=== PATIENT | male | born 1950 | race Caucasian/White ===

== ENCOUNTER 2022-05-31 15:20 | Inpatient (IN) | payer MEDICARE, SELFPAY ==
[2022-05-31] VITALS (11 sets, daily range): BP systolic 136–187; BP diastolic 76–100; PULSE 66–87; RESP 14–21; TEMP 36.7–37.2; O2SAT 94–98; BMI 28.3
--- NOTE | 2022-05-31 15:21 | ED_ITS ---
Documented by User: Melecio Baer MD 06/12/22 08:28 HPI - Chest Pain General: Chief Complaint: Chest Pain Stated Complaint: CP Time Seen by Provider: 05/31/22 15:21 History of Present Illness: Mr. Montes is a 72-year-old gentleman with significant past medical history of MT presenting to the emergency department for chest pain. 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 He reports no history of frequent chest pain. Substernal left anterior chest radiating to both arms. Feels like a heaviness on his chest. Moderate to severe in intensity and mildly improved by nitroglycerin. No other specific changes in health, exacerbating, or alleviating factors identified. Onset (ago): minute(s) Timing of current episode: constant Prior episodes: Yes Onset: during exertion Pain location: substernal and left chest Pain radiation: right arm and left arm Severity: severe Quality: aching and heaviness Relieving factors: nothing Exacerbating factors: nothing Associated symptoms: Reports dyspnea Review of Systems General: Reports: 10 or more systems reviewed and unremarkable except in HPI and below Resp: Reports: dyspnea PFSH ED PFSH: Medical History CAD (coronary artery disease) Surgical History Hx of CABG Physical Exam Const: COMMON NORMALS: alert GENERAL APPEARANCE: cooperative and well developed HENMT: COMMON NORMALS: normocephalic and atraumatic HEAD & SCALP: normocephalic and atraumatic Eye: COMMON NORMALS: conjunctivae normal CONJUNCTIVA: Yes conjunctivae normal SCLERA: sclerae normal Neck/C-Spine: COMMON NORMALS: supple GENERAL: Yes trachea midline Resp: COMMON NORMALS: normal respiratory effort EFFORT & INSPECTION: Yes able to speak in complete sentences Cardio: COMMON NORMALS: regular rate and regular rhythm RATE: regular rate RHYTHM: regular rhythm GI: COMMON NORMALS: Soft to palpation PALPATION: Yes Soft to palpation and No Tenderness to palpation present (GI) Extremity: GENERAL: Yes normal exam except as noted and No edema Neuro: COMMON NORMALS: moves all extremities SENSORIUM/ORIENTATION: Yes alert and No Orientation impaired Psych: COMMON NORMALS: mental status grossly normal and Normal thought process present THOUGHT PROCESS: Normal thought process present Course Vital Signs: Vital signs: Vital Signs Temperature 98 F 06/02/22 03:32 Pulse Rate 77 06/02/22 11:11 Respiratory Rate 24 H 06/02/22 11:11 Blood Pressure 139/83 06/02/22 11:11 Pulse Oximetry 95 06/02/22 03:32 Oxygen Delivery Me thod 06/01/22 19:00 MDM - Chest Pain Medical Decision Making 72-year-old gentleman with cardiac history of presenting with chest pain. Exam as above. EKG notable for sinus rhythm with normal axis and intervals, no STEMI. No significant hematologic or abnormalities. Initial troponin within the normal range however symptoms have only recently started. Repeat needed. Chest x-ray with no lobar consolidation or pneumothorax. Handed off pending 2-hour troponin results. 72-year-old male checked out to me by the previous physician at shift change. He was pending a second troponin at the time. His discomfort is much improved from prior. He still having minimal discomfort. He is given Nitropaste, as well as morphine for this. His delta troponin is 180. EKG was not remarkable. Chest x-ray shows no acute findings. Spoke with the hospitalist and with cardiology. They both agree for admission. N.p.o. after midnight, and cardiac catheterization in the morning likely for this patient. Cardiology notes that if he has trouble overnight, he could go sooner. He will go to the [facility] Medical Records I reviewed the patient's medical records. Lab Data I reviewed the patient's lab results. 05/31/22 15:46 05/31/22 15:46 Radiology Impressions Chest X-Ray 05/31/22 15:43 IMPRESSION: No acute findings. Metallic sternotomy wires are present Chest CTA 05/31/22 20:50 IMPRESSION: No acute arterial findings. 1.7 cm splenic aneurysm Laboratory Results WBC 6.3 10^3/uL (4.0-10.0) 05/31/22 15:46 RBC 5.41 10^6/uL (4.1-5.3) H 05/31/22 15:46 Hgb 16.2 g/dL (11.7-16.6) 05/31/22 15:46 Hct 48.7 % (42.0-52.0) 05/31/22 15:46 MCV 90.0 fl (80-94) 05/31/22 15:46 MCH 29.9 pg (28.0-34.0) 05/31/22 15:46 MCHC 33.3 g/dL (30.0-36.0) 05/31/22 15:46 RDW 12.5 % (12.1-15.1) 05/31/22 15:46 Plt Count 265 10^3/cmm (130-400) 05/31/22 15:46 MPV 8.8 fL (7.4-10.4) 05/31/22 15:46 Neut % (Auto) 76.0 % 05/31/22 15:46 Lymph % (Auto) 15.2 % 05/31/22 15:46 [place] % (Auto) 7.3 % 05/31/22 15:46 Eos % (Auto) 0.6 % 05/31/22 15:46 Baso % (Auto) 0.6 % 05/31/22 15:46 Neut # (Auto) 4.79 10^3/uL (1.8-7.7) 05/31/22 15:46 Lymph # (Auto) 1.0 10^3/uL (0.8-4.8) 05/31/22 15:46 [place] # (Auto) 0.5 10^3/uL (0.2-0.9) 05/31/22 15:46 Eos # (Auto) 0.0 10^3/uL (0.0-0.8) 05/31/22 15:46 Baso # (Auto) 0.0 10^3/uL (0.0-0.1) 05/31/22 15:46 Nucleated RBC % (auto) 0 % 05/31/22 15:46 Nucleated RBCs # 0.0 /100WBC 05/31/22 15:46 Sodium 139 mmol/L (136-145) 05/31/22 15:46 Potassium 4.3 mmol/L (3.5-5.1) 05/31/22 15:46 Chloride 101 mmol/L (98-107) 05/31/22 15:46 Carbon Dioxide 28 mmol/L (22-29) 05/31/22 15:46 Anion Gap 14.3 (5-19) 05/31/22 15:46 BUN 11 mg/dL (8-23) 05/31/22 15:46 Creatinine 1.1 mg/dL (0.7-1.2) 05/31/22 15:46 GFR Calculation Not Reportable 05/31/22 15:46 Glucose 107 mg/dL (65-115) 05/31/22 15:46 Calculated Osmolality 288 mOsm/kg (285-295) 05/31/22 15:46 Calcium 9.6 mg/dL (8.5-10.5) 05/31/22 15:46 Total Bilirubin 0.6 mg/dL (0.15-1.2) 05/31/22 15:46 AST 21 U/L (0-40) 05/31/22 15:46 ALT 18 U/L (0-41) 05/31/22 15:46 Alkaline Phosphatase 71 U/L (40-130) 05/31/22 15:46 Troponin T Baseline 12 ng/L (0-15) 05/31/22 15:46 Troponin T 120 Minute 193.8 ng/L (0-15) H 05/31/22 19:01 Delta Troponin T 181.8 ABS# (0-10) H* 05/31/22 19:01 NT-Pro-B Natriuret Pep 103 pg/mL (0-125) 05/31/22 15:46 Total Protein 7.8 g/dL (6.6-8.7) 05/31/22 15:46 Albumin 4.8 g/dL (3.5-5.2) 05/31/22 15:46 Globulin 3.0 g/dL (1.3-4.6) 05/31/22 15:46 Lipase 34 U/L (13-60) 05/31/22 15:46 Discharge Plan Discharge Patient Disposition: Admitted As Inpatient Admit Provider: Prasanna Sorensen Clinical Impression: Chest pain, Non-STEMI (non-ST elevated myocardial infarction) Condition: Stable Discharge Diet: Cardiac Discharge Activity: Resume usual activity Coding Level of Care Code ED Certified Energy Manager for Chg Fwd Documented by User: Angus John Mendoza, 05/31/22 22:23 HPI - Chest Pain General: Chief Complaint: Chest Pain Stated Complaint: CP Time Seen by Provider: 05/31/22 15:21 PFS ED PFSH: Medical History CAD (coronary artery disease) Surgical History Hx of CABG Course Consultations: Consultation #1: [place] Consultation #2: Robert Vital Signs: Vital signs: Vital Signs Temperature 98 F 06/02/22 03:32 Pulse Rate 77 06/02/22 11:11 Respiratory Rate 24 H 06/02/22 11:11 Blood Pressure 139/83 06/02/22 11:11 Pulse Oximetry 95 06/02/22 03:32 Oxygen Delivery Me thod 06/01/22 19:00 MDM - Chest Pain Medical Decision Making 72-year-old male checked out to me by the previous physician at shift change. He was pending a second troponin at the time. His discomfort is much improved from prior. He still having minimal discomfort. He is given Nitropaste, as well as morphine for this. His delta troponin is 180. EKG was not remarkable. Chest x-ray shows no acute findings. Spoke with the hospitalist and with cardiology. They both agree for admission. N.p.o. after midnight, and cardiac catheterization in the morning likely for this patient. Cardiology notes that if he has trouble overnight, he could go sooner. He will go to the [facility] Lab Data 05/31/22 15:46 05/31/22 15:46 Radiology Impressions Chest X-Ray 05/31/22 15:43 IMPRESSION: No acute findings. Metallic sternotomy wires are present Chest CTA 05/31/22 20:50 IMPRESSION: No acute arterial findings. 1.7 cm splenic aneurysm Laboratory Results WBC 6.3 10^3/uL (4.0-10.0) 05/31/22 15:46 RBC 5.41 10^6/uL (4.1-5.3) H 05/31/22 15:46 Hgb 16.2 g/dL (11.7-16.6) 05/31/22 15:46 Hct 48.7 % (42.0-52.0) 05/31/22 15:46 MCV 90.0 fl (80-94) 05/31/22 15:46 MCH 29.9 pg (28.0-34.0) 05/31/22 15:46 MCHC 33.3 g/dL (30.0-36.0) 05/31/22 15:46 RDW 12.5 % (12.1-15.1) 05/31/22 15:46 Plt Count 265 10^3/cmm (130-400) 05/31/22 15:46 MPV 8.8 fL (7.4-10.4) 05/31/22 15:46 Neut % (Auto) 76.0 % 05/31/22 15:46 Lymph % (Auto) 15.2 % 05/31/22 15:46 [place] % (Auto) 7.3 % 05/31/22 15:46 Eos % (Auto) 0.6 % 05/31/22 15:46 Baso % (Auto) 0.6 % 05/31/22 15:46 Neut # (Auto) 4.79 10^3/uL (1.8-7.7) 05/31/22 15:46 Lymph # (Auto) 1.0 10^3/uL (0.8-4.8) 05/31/22 15:46 [place] # (Auto) 0.5 10^3/uL (0.2-0.9) 05/31/22 15:46 Eos # (Auto) 0.0 10^3/uL (0.0-0.8) 05/31/22 15:46 Baso # (Auto) 0.0 10^3/uL (0.0-0.1) 05/31/22 15:46 Nucleated RBC % (auto) 0 % 05/31/22 15:46 Nucleated RBCs # 0.0 /100WBC 05/31/22 15:46 Sodium 139 mmol/L (136-145) 05/31/22 15:46 Potassium 4.3 mmol/L (3.5-5.1) 05/31/22 15:46 Chloride 101 mmol/L (98-107) 05/31/22 15:46 Carbon Dioxide 28 mmol/L (22-29) 05/31/22 15:46 Anion Gap 14.3 (5-19) 05/31/22 15:46 BUN 11 mg/dL (8-23) 05/31/22 15:46 Creatinine 1.1 mg/dL (0.7-1.2) 05/31/22 15:46 GFR Calculation Not Reportable 05/31/22 15:46 Glucose 107 mg/dL (65-115) 05/31/22 15:46 Calculated Osmolality 288 mOsm/kg (285-295) 05/31/22 15:46 Calcium 9.6 mg/dL (8.5-10.5) 05/31/22 15:46 Total Bilirubin 0.6 mg/dL (0.15-1.2) 05/31/22 15:46 AST 21 U/L (0-40) 05/31/22 15:46 ALT 18 U/L (0-41) 05/31/22 15:46 Alkaline Phosphatase 71 U/L (40-130) 05/31/22 15:46 Troponin T Baseline 12 ng/L (0-15) 05/31/22 15:46 Troponin T 120 Minute 193.8 ng/L (0-15) H 05/31/22 19:01 Delta Troponin T 181.8 ABS# (0-10) H* 05/31/22 19:01 NT-Pro-B Natriuret Pep 103 pg/mL (0-125) 05/31/22 15:46 Total Protein 7.8 g/dL (6.6-8.7) 05/31/22 15:46 Albumin 4.8 g/dL (3.5-5.2) 05/31/22 15:46 Globulin 3.0 g/dL (1.3-4.6) 05/31/22 15:46 Lipase 34 U/L (13-60) 05/31/22 15:46 Discharge Plan Discharge Patient Disposition: Admitted As Inpatient Admit Provider: Prasanna Sorensen Clinical Impression: Chest pain, Non-STEMI (non-ST elevated myocardial infarction) Condition: Stable Discharge Diet: Cardiac Discharge Activity: Resume usual activity Coding Level of Care Code ED Certified Energy Manager for Chg Mynor
--- NOTE | 2022-05-31 15:28 | ECG_ITS ---
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
--- NOTE | 2022-05-31 15:43 | XRR_ITS ---
PROCEDURE INFORMATION: Exam: XR Chest Exam date and time: 05/31/2022 3:47 PM Age: 72 years old Clinical indication: Pain; Other: Generalized cp; Prior surgery; Surgery type: Open heart TECHNIQUE: Imaging protocol: Radiologic exam of the chest. Views: 1 view. COMPARISON: No relevant prior studies available. FINDINGS: Lungs: Unremarkable. No consolidation. Pleural spaces: Unremarkable. No pleural effusion. No pneumothorax. Heart/Mediastinum: Unremarkable. No cardiomegaly. Bones/joints: Metallic sternotomy wires are present. XR/XR chest 1V portable [id number] IMPRESSION: No acute findings. Metallic sternotomy wires are present
--- NOTE | 2022-05-31 15:48 | PC.NURSE ---
PT PLACED ON CONTINUOUS SPO2, NIBP, AND CM.
[2022-05-31] MEDS: aspirin 81 mg Chew Tablet 324 MG PO (15:49)
[2022-05-31] MEDS: morphine 4 mg/mL SDV 1 mL IVP ×2 (15:50→20:44)
[2022-05-31 15:53] LABS: Basophils % 0.6 %; Eosinophils % 0.6 %; Hematocrit 48.7 % (42.0-52.0); Hemoglobin 16.2 g/dL (11.7-16.6); Lymphocytes % 15.2 %; Mean Corpuscular HGB Conc 33.3 g/dL (30.0-36.0); Mean Corpuscular Hemoglobin 29.9 pg (28.0-34.0); Mean Platelet Volume 8.8 fL (7.4-10.4); Monocytes # 0.5 10^3/uL (0.2-0.9); Monocytes % 7.3 %; Neutrophils # 4.79 10^3/uL (1.8-7.7); Nucleated Red Blood Cells % 0 %; Platelet Count 265 10^3/cmm (130-400); Red Blood Count 5.41 10^6/uL (4.1-5.3); Red Cell Distribution Width 12.5 % (12.1-15.1); White Blood Count 6.3 10^3/uL (4.0-10.0)
[2022-05-31 16:22] LABS: Troponin(5th) Baseline 12 ng/L (0-15)
[2022-05-31 16:29] LABS: Alanine Aminotransferase 18 U/L (0-41); Albumin Level 4.8 g/dL (3.5-5.2); Alkaline Phosphatase 71 U/L (40-130); Anion Gap 14.3 (5-19); Aspartate Amino Transferase 21 U/L (0-40); Blood Urea Nitrogen 11 mg/dL (8-23); Calcium 9.6 mg/dL (8.5-10.5); Carbon Dioxide 28 mmol/L (22-29); Chloride 101 mmol/L (98-107); Glucose 107 mg/dL (65-115); Lipase 34 U/L (13-60); NT Pro B Type Natriuretic Pept 103 pg/mL (0-125); Osmolality Calculated 288 mOsm/kg (285-295); Potassium 4.3 mmol/L (3.5-5.1); Sodium 139 mmol/L (136-145); Total Bilirubin 0.6 mg/dL (0.15-1.2); Total Protein 7.8 g/dL (6.6-8.7)
[2022-05-31] MEDS: fentaNYL 50 mcg/mL INJ 2mL IVP (17:52)
[2022-05-31] MEDS: ketorolac 30 mg/mL INJ 15 MG IVP (17:53)
--- NOTE | 2022-05-31 17:57 | ECG_ITS ---
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
--- NOTE | 2022-05-31 18:56 | PC.NURSE ---
REPORT GIVEN TO HYUN SAMAYOA ASSUMED CARE.
[2022-05-31 19:43] LABS: Troponin 5 2HR 193.8 ng/L (0-15); Troponin 5 2HR Delta 181.8 ABS# (0-10)
[2022-05-31] MEDS: clopidogrel 300 mg Tablet PO (19:52)
[2022-05-31] MEDS: enoxaparin 80 mg/0.8 mL Syringe SUBCUT (19:53)
[2022-05-31] MEDS: aspirin 325 mg Tablet PO (20:08)
[2022-05-31] MEDS: nitroglycerin 1 gm/inch oint Pkt 1 INCH TOPICAL (20:46)
--- NOTE | 2022-05-31 20:50 | CTR_ITS ---
PROCEDURE INFORMATION: Exam: CTA Chest With Contrast Exam date and time: 05/31/2022 8:55 PM Age: 72 years old Clinical indication: Pain; Chest pressure; Prior surgery; Surgery date: 6+ months; Surgery type: Cabg; Additional info: Back pain. ? Dissection TECHNIQUE: Imaging protocol: Computed tomographic angiography of the chest with contrast. 3D rendering (Not supervised by radiologist): MIP and/or 3D reconstructed images were created by the technologist. Radiation optimization: All CT scans at this facility use at least one of these dose optimization techniques: automated exposure control; mA and/or kV adjustment per patient size (includes targeted exams where dose is matched to clinical indication); or iterative reconstruction. Contrast material: OMNI 350; Contrast volume: 100 ml; Contrast route: INTRAVENOUS (IV); REPORTING DATA: Count of CT and Cardiac NM exams in prior 12 months: This patient has received 0 known CTs and 0 known cardiac nuclear medicine studies in the 12 months prior to the current study. COMPARISON: CR (CHEST, ) 05/31/2022 3:47 PM RADIATION DOSE METRICS: Total DLP (mGy-cm): 769.95 FINDINGS: Pulmonary arteries: Normal. No pulmonary emboli. Aorta: No aortic aneurysm. No aortic dissection. Celiac trunk and mesenteric arteries: Splenic aneurysm measures up to 1.7 cm. Aneurysm is partially calcified. Lungs: Mild mosaic pulmonary attenuation may relate to expiratory phase imaging. Pleural spaces: No pneumothorax. No pleural effusion. Heart: Mild cardiomegaly. No pericardial effusion. Coronary calcifications are noted. Coronary arteries: Changes of coronary artery bypass are noted. Lymph nodes: No enlarged lymph nodes. Bones/joints: Sternotomy wires are in place. Soft tissues: Unremarkable. CT/CT angio chest [id number] IMPRESSION: No acute arterial findings. 1.7 cm splenic aneurysm
--- NOTE | 2022-05-31 20:54 | P.HP_ITS ---
Providers/Chief Complaint Admitting Physician: Prasanna Sorensen Primary Care Provider: Enrrique Bernardo Chief Complaint: CP History of Present Illness 72-year-old gentleman with history of CABG, started having chest pain radiating to the back and neck, quite severe, without exacerbating factors, did not respond to 1 nitroglycerin he took at home this afternoon, chest pain lasting u ntil he was in the ER, improved with treatment here. Currently feels like it might be coming back a little bit, but definitely not anything like it was before. Still having back pain. He says otherwise he has done quite well ever since his CABG. Has been quite active, walking quite a bit, has not been bothered by chest pain up until now. Review of Systems Const: Denies: fever(s), chills, body aches or malaise ENMT: Denies: throat pain, oral sores or ear or mastoid pain Card: Reports: chest pain; Denies: edema, pre-syncope or dyspnea on exertion Resp: Denies: dyspnea, productive cough, change in phlegm color or hemoptysis GI: Denies: abdominal pain, nausea, vomiting, diarrhea, constipation, hematochezia or melena : Denies: flank pain, difficulty urinating, urinary frequency or hematuria Musc: Reports: back pain; Denies: joint swelling or joint redness Skin/Breast: Denies: rash or new lesions Neuro: Denies: headache(s), numbness in extremities, weakness in extremities, dizziness, confusion or seizure-like activity Medications/Allergies Allergies Allergy/AdvReac Type Severity Reaction Status Date / Time smallpox vaccine,live Allergy ADR-Nausea Verified 05/31/22 15:49 PFSH Acute PFSH: Medical History (Updated 05/31/22 @ 20:55 by Prasanna Sorensen MD) CAD (coronary artery disease) Surgical History (Updated 05/31/22 @ 20:55 by Prasanna Sorensen MD) Hx of CABG Vitals/I&O/Wt Last Vital Signs Temp 98.1 F 05/31/22 15:20 Pulse 80 05/31/22 20:48 Resp 16 05/31/22 20:48 BP 163/92 05/31/22 20:48 Pulse Ox 98 05/31/22 20:48 O2 Del Method 05/31/22 15:20 Weight last 48 hrs Weight 82.1 kg Physical Exam Narrative: at bedside Const: COMMON NORMALS: patient oriented x3 and alert GENERAL APPEARANCE: cooperative ORIENTATION/CONSCIOUSNESS: Yes awake HENMT: COMMON NORMALS: oropharynx normal Neck/C-Spine: COMMON NORMALS: no JVD Resp: COMMON NORMALS: normal respiratory effort and clear to auscultation bilaterally AUSCULTATION: clear to auscultation bilaterally Cardio: COMMON NORMALS: no JVD, regular rhythm, S1 normal heart sound present, S2 normal heart sound present and No murmurs present (Cardio) RHYTHM: regular rhythm HEART SOUNDS: S1 normal heart sound present and S2 normal heart sound present GI: COMMON NORMALS: Normal to inspection, nondistended, normoactive bowel sounds present, Soft to palpation and non-tender PALPATION: Yes Soft to palpation Extremity: COMMON NORMALS: no joint enlargement and no pedal edema Neuro: COMMON NORMALS: patient oriented x3 and moves all extremities SENSORIUM/ORIENTATION: Yes alert Skin: COMMON NORMALS: no rashes or lesions noted GENERAL SKIN EXAM: no rashes or lesions noted Data 05/31/22 15:46 05/31/22 15:46 A&P Assessment and plan (1) Non-STEMI (non-ST elevated myocardial infarction): Troponin rise from normal up to 193.8 at 2 hours. EKG reviewed, per my interpretation no ST elevation, nonspecific T wave abnormality. Complete troponin EKG series. Continue aspirin, statin, beta-dianna. Anticoagulation. With pain radiating to the back after horseback ride additionally assess CTA to exclude large vessel dissection. Discussed risks including ALMA. Assess limited TTE, he states had a very recent TTE. Monitor on telemetry. Cardiology consultation. N.p.o. after midnight with anticipation of further assessment with coronary angiography. Chest x-ray noted with metallic sternotomy wires. NT proBNP 103. Lipase 34. Discussed with ER physician ER documentation reviewed. (2) Chest pain: Radiating to the back pain for elevation, further assessment with CTA. Plan Back pain: After horseback ride. Additionally assess spine x-rays for any compression fracture. CAD Requested home medications to be entered, please reconcile once available. Attestations Medical Necessity Statement*: Admission of over 2 midnights anticipated for assessment management of NSTEMI Diagnoses Non-STEMI (non-ST elevated myocardial infarction) I21.4 Chest pain R07.9
[2022-05-31] MEDS: iohexol 350 mg/mL 500 mL Btl (per mL) IV (20:56)
--- NOTE | 2022-05-31 21:43 | ECG_ITS ---
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1950 Requested By: Melecio Baer Order Number: [id number] Reading MD: FABIO ASCENCIO Measurements Intervals [place] Rate: 73 P: 48 VT: 184 QRS: 26 QRSD: 83 T: 25 QT: 351 QTc: 389 Interpretive Statements SINUS RHYTHM POSSIBLE RIGHT VENTRICULAR CONDUCTION DELAY [RSR (QR) IN V1/V2] NONSPECIFIC T-WAVE ABNORMALITY Compared to ECG 05/31/2022 17:57:50 No significant changes Electronically Signed On 05-31-2022 23:41:52 CDT by FABIO ASCENCIO [id number]
[2022-05-31 22:21] LABS: Troponin 5 6HR 551.1 ng/L (0-15); Troponin 5 6HR Delta 539.1 ng/L (0-12)
[2022-05-31] MEDS: pantoprazole 40 mg SDV IVP (22:54)
[2022-05-31] MEDS: metoprolol tartrate 25 mg Tablet PO (22:54)
[2022-06-01] VITALS (30 sets, daily range): BP systolic 110–133; BP diastolic 59–82; PULSE 59–89; RESP 10–29; TEMP 36.7–37.3; O2SAT 91–98
[2022-06-01 05:21] LABS: Basophils % 0.4 %; Eosinophils # 0.1 10^3/uL (0.0-0.8); Eosinophils % 0.6 %; Hematocrit 38.5 % (42.0-52.0); Hemoglobin 12.7 g/dL (11.7-16.6); Lymphocytes # 1.8 10^3/uL (0.8-4.8); Lymphocytes % 22.9 %; Mean Platelet Volume 9.3 fL (7.4-10.4); Monocytes # 0.7 10^3/uL (0.2-0.9); Monocytes % 8.7 %; Neutrophils # 5.32 10^3/uL (1.8-7.7); Nucleated Red Blood Cells % 0 %; Platelet Count 194 10^3/cmm (130-400); Red Blood Count 4.23 10^6/uL (4.1-5.3); Red Cell Distribution Width 12.6 % (12.1-15.1); White Blood Count 7.9 10^3/uL (4.0-10.0)
[2022-06-01 05:49] LABS: Alanine Aminotransferase 34 U/L (0-41); Albumin Level 3.7 g/dL (3.5-5.2); Alkaline Phosphatase 52 U/L (40-130); Aspartate Amino Transferase 228 U/L (0-40); Blood Urea Nitrogen 11 mg/dL (8-23); Calcium 8.6 mg/dL (8.5-10.5); Carbon Dioxide 28 mmol/L (22-29); Chloride 108 mmol/L (98-107); Globulin 2.4 g/dL (1.3-4.6); Glucose 108 mg/dL (65-115); Magnesium 1.7 mg/dL (1.7-2.3); Osmolality Calculated 296 mOsm/kg (285-295); Sodium 143 mmol/L (136-145); Total Bilirubin 0.5 mg/dL (0.15-1.2); Total Protein 6.1 g/dL (6.6-8.7)
--- NOTE | 2022-06-01 06:00 | USCV_ITS ---
Willie Montes Age: 72 Gender: M : 1950 Exam Date: 06/01/2022 09:18 Ordering Phys: Prasanna Sorensen MD Technologist: GRISELDA Exam Location: [facility] [place] Indication: nstemi BP: / HR: Rhythm: Sinus Technical Quality: Adequate MEASUREMENTS (Male / Female) Normal Values FINDINGS Left Ventricle Normal left ventricular size, systolic function and wall thickness, with no regional wall motion abnormalities. Left ventricular ejection fraction is estimated at 60 %. Grade II/IV diastolic dysfunction, moderately elevated filling pressures. Right Ventricle The right ventricle is normal in size and function. Right Atrium The right atrium is normal in size. Left Atrium The left atrium is normal in size. Mitral Valve Moderately thickened mitral valve. No mitral valve stenosis. Mild mitral valve regurgitation. Moderate mitral annular calcification. Aortic Valve Severe aortic valve calcification. No aortic valve stenosis. Trace aortic valve regurgitation. Tricuspid Valve Trace tricuspid valve regurgitation. Pulmonic Valve Structurally normal pulmonic valve without significant stenosis. There is no pulmonic regurgitation. Pericardium Normal pericardium without effusion. Aorta Normal ascending aorta dimension. IVC The inferior vena cava appears normal. CONCLUSIONS 1-Normal left ventricular size, systolic function and wall thickness, with no regional wall motion abnormalities. Left ventricular ejection fraction is estimated at 60 %. Grade II/IV diastolic dysfunction, moderately elevated filling pressures. 2-Severe aortic valve calcification. No aortic valve stenosis. Trace aortic valve regurgitation. 3-Moderately thickened mitral valve. No mitral valve stenosis. Mild mitral valve regurgitation. Moderate mitral annular calcification. 4-There is no pericardial effusion. 5-Right atrial pressure is around 5 mm of mercury. Saran Jones MD (Electronically Signed) Final Date: 01 June 2022 16:59 S
[2022-06-01] MEDS: clopidogrel 300 mg Tablet PO (09:30)
[2022-06-01] MEDS: aspirin 325 mg Tablet PO (09:30)
[2022-06-01] MEDS: metoprolol tartrate 25 mg Tablet PO ×2 (09:30→20:40)
[2022-06-01] MEDS: pantoprazole DR 40 mg Tablet PO (09:30)
--- NOTE | 2022-06-01 09:40 | P.CONIM_ITS ---
Providers/Reason For Consult Consulting Physician/Specialty*: ER and internal medicine Reason for Consult*: Non-ST elevation CT Attending Physician: Sonu Pryor MD Primary Care Provider: Enrrique Bernardo History of Present Illness History of Present Illness Willie Montes is a 72 year old male past medical history significant for hypertension hyperlipidemia coronary artery disease status post CABG at [facility] in 2014 with three-vessel bypass allergic to statin on Repatha presented with worsening of chest pain radiating towards back. He was ruled in for non-ST elevation CT, CTA rule out pulmonary embolism/aortic dissection. Currently he is chest pain-free and stable vital lobo. Review of Systems Const: Denies: fever(s), chills, body aches or malaise ENMT: Denies: throat pain, oral sores or ear or mastoid pain Card: Reports: chest pain; Denies: edema, pre-syncope or dyspnea on exertion Resp: Denies: dyspnea, productive cough, change in phlegm color or hemoptysis GI: Denies: abdominal pain, nausea, vomiting, diarrhea, constipation, hematochezia or melena : Denies: flank pain, difficulty urinating, urinary frequency or hematuria Musc: Reports: back pain; Denies: joint swelling or joint redness Skin/Breast: Denies: rash or new lesions Neuro: Denies: headache(s), numbness in extremities, weakness in extremities, dizziness, confusion or seizure-like activity Medications/Allergies Home Medications Medication Instructions Recorded Confirmed Last Taken Type aspirin 81 mg chewable tablet 81 mg PO DAILY 05/31/22 05/31/22 Unknown History carvedilol 3.125 mg tablet 3.125 mg PO BID 05/31/22 05/31/22 Unknown History evolocumab 140 mg/mL subcutaneous 140 mg SUBCUT DIRECTED 05/31/22 05/31/22 Unknown History pen injector (Javy Belcher) omeprazole magnesium 20 mg 20 mg PO DAILY 05/31/22 05/31/22 Unknown History tablet,delayed release (Prilosec OTC) Allergies Allergy/AdvReac Type Severity Reaction Status Date / Time smallpox vaccine,live Allergy ADR-Nausea Verified 05/31/22 15:49 Current Medications Generic Name Dose Route Start Last Admin Trade Name Freq PRN Reason Stop Dose Admin Metoprolol Tartrate 25 mg 05/31/22 21:05 05/31/22 22:54 Metoprolol Tartrate 25 Mg Tablet PO 25 mg BID@0900,2100 JOSE Administration Pantoprazole Sodium 40 mg 05/31/22 21:15 05/31/22 22:54 Pantoprazole 40 Mg Sdv IVP 40 mg Q24H JOSE Administration PFSH Acute PFSH: Medical History (Updated 06/01/22 @ 12:05 by Saran Jones MD) CAD (coronary artery disease) Surgical History (Updated 05/31/22 @ 20:55 by Prasanna Sorensen MD) Hx of CABG Vitals/I&O/Wt Last Vital Signs Temp 98.4 F 06/01/22 07:50 Pulse 77 06/01/22 07:50 Resp 18 06/01/22 07:50 BP 123/64 06/01/22 07:50 Pulse Ox 94 06/01/22 07:50 O2 Del Method 06/01/22 07:50 05/31/22 06/01/22 06/01/22 22:59 06:59 14:59 Intake Total 680 / 680 Output Total 200 / 200 Balance 480 / 480 Weight last 48 hrs Weight 186 lb 1.6 oz Weight 186 lb 3.2 oz Weight 181 lb Physical Exam Narrative: Alert awake oriented x3 No JVD cyanosis or icterus Heart regular S1-S2 Abdomen soft nontender nontender Lungs clear to auscultate 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 We will proceed with left heart cath. Patient has been explained all risk benefit and alternative for the procedure he would like to proceed with it. (2) Essential hypertension: Control will continue current regimen. (3) Hyperlipidemia associated with type 2 diabetes mellitus: Continue Repatha Coding Level of Care Code Acute Code for Chg Fwd Diagnoses Non-STEMI (non-ST elevated myocardial infarction) I21.4 Essential hypertension I10 Hyperlipidemia associated with type 2 diabetes mellitus E11.69; E78.5 Time Spent (min) 30
--- NOTE | 2022-06-01 10:59 | P.PN_ITS ---
Subjective Subjective: Patient was seen this morning at bedside, currently getting an echocardiogram, currently chest pain-free, plans on cardiac catheterization this morning Vitals/I&O/Wt Last Vital Signs Temp 98.4 F 06/01/22 07:50 Pulse 77 06/01/22 07:50 Resp 18 06/01/22 07:50 BP 123/64 06/01/22 07:50 Pulse Ox 94 06/01/22 07:50 O2 Del Method 06/01/22 07:50 05/31/22 06/01/22 06/01/22 22:59 06:59 14:59 Intake Total 680 / 680 Output Total 200 / 200 Balance 480 / 480 Weight last 48 hrs Weight 84.414 kg Weight 84.459 kg Weight 82.1 kg Physical Exam Const: COMMON NORMALS: no acute distress and patient oriented x3 Resp: COMMON NORMALS: normal respiratory effort, No retractions, No use of accessory muscles and clear to auscultation bilaterally AUSCULTATION: clear to auscultation bilaterally Cardio: COMMON NORMALS: regular rate, regular rhythm, S1 normal heart sound present and S2 normal heart sound present RATE: regular rate RHYTHM: regular rhythm HEART SOUNDS: S1 normal heart sound present and S2 normal heart sound present GI: COMMON NORMALS: Normal to inspection, nondistended, normoactive bowel sounds present and non-tender Extremity: COMMON NORMALS: no pedal edema Neuro: COMMON NORMALS: patient oriented x3 Psych: COMMON NORMALS: mental status grossly normal Data 06/01/22 04:20 06/01/22 04:20 A&P Assessment and plan (1) Non-STEMI (non-ST elevated myocardial infarction): Troponin rise from normal up to 193.8 at 2 hours. EKG reviewed, per my interpretation no ST elevation, nonspecific T wave abnormality. Complete troponin EKG series. Continue aspirin, statin, beta-dianna. Anticoagulation. With pain radiating to the back after horseback ride additionally assess CTA to exclude large vessel dissection. CTA negative for large vessel dissection Assess limited TTE, he states had a very recent TTE. Monitor on telemetry. Cardiology consultation. N.p.o., plans on coronary angiography this morning Chest x-ray noted with metallic sternotomy wires. NT proBNP 103. Lipase 34. Spoke to cardiology, on plans on angiography, spoke to at bedside (2) Chest pain: Radiating to the back pain for elevation, further assessment with CTA. Plan Back pain: After horseback ride. Additionally assess spine x-rays for any compression fracture. CAD Requested home medications to be entered, please reconcile once available. Attestations Medical Necessity Statement*: Patient requires hospitalization for NSTEMI, chest pain, Coding Level of Care Code 54955 Moderate MDM includes number and complexity of problems actively addressed during encounter, amount and/or complexity of data reviewed/ordered and described risk of complication, morbidity or mortality of management as docum ented Diagnoses Non-STEMI (non-ST elevated myocardial infarction) I21.4 Chest pain R07.9
--- NOTE | 2022-06-01 11:27 | XACV_ITS ---
Exam Room: [facility] Ht: 170 cm Wt: 84 kg BSA: 2.02 m2 Gender: Male : 1950 Any Known Allergies: Other Exam Priority: Routine Procedure(s): Procedure Description: Diagnostic procedure Procedure Description: PCI procedure Procedure Description: Venous Graft Catheterization Procedure Description: Coronary Thrombectomy Procedure Description: Miscellaneous Procedure Description: Angio-Seal Procedure Description: Coronary Angiography Robert WARD; Diagnostic Cath Status: Urgent Diagnostic Findings * #1 Left main has luminal irregularity without significant stenosis#2 LAD is occluded in the midsegment which is chronic#3 Nondominant circumflex has proximal 100% chronic total#4 RCA is a dominant vessel which is has luminal irregularities distal 30 to 40% stenosis PDA has mid 60 to 70% eccentric stenosisGraftsLIMA to LAD is patentSVG to diagonal is chronically occludedSVG to distal circumflex is a large-caliber aneurysmal diffusely diseased venous graft with proximal and distal high burden of thrombosis, it is the culprit vessel. PCI Status: Urgent PCI Indication: NSTE - ACS Interventional Findings * After engaging saphenous venous graft to circumflex run-through wire was crossed using CAT 6 penumbra catheter multiple passes of the catheter was performed from proximal to distal end of the saphenous venous graft, multiple clots were sucked out of the vessel, it restored the flow. No significant residual clot was noted. Good BERNADETTE-3 flow was confirmed and restored. Since there was no obvious lesion therefore no further ballooning or intervention was performed.. Recommendations * Continue dual antiplatelet therapy for at least 1 year for non-ST elevation MIGuideline medical therapy for acute coronary syndromeRisk factor modification. Diagnostic RX Recommendation: PCI w/o planned CABG Pressures Phase:Rest AO : 108 / 76 ( 92 ) @ 1:53:00 PM 88 / 62 ( 74 ) @ 2:30:00 PM 116 / 64 ( 86 ) @ 2:36:00 PM 110 / 54 ( 79 ) @ 2:41:00 PM Clinical Evaluation EBL: 5mL-10mL Procedural Details Procedure Consent Obtained. Admit Source: In Patient. Pre-Procedure Time Out. Identified patient by full name and date of as verbalized by the patient/guarantor. Does the consent match the physician's order: Yes. Accurate & Complete Informed Consent: Yes. Inpatient/Outpatient History & Physical on Chart: Yes. If H&P is completed, is and addenduem needed: No; If yes, is the addendum complete: N/A. Visualize and Verify Site with Patient/Guarantor: N/A. Relevant Radiology Images available: N/A. Pre-op teaching completed and patient verbalized understanding. The risks, benefits, and alternatives of sedation and/or procedure were discussed by physician. The patient agrees to continue. Procedure started. [facility] Clinical Fraility Score: 3: Managing Well. 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 Chest Pain Symptom Assessment: Typical Angina Symptoms. Correct patient, site and procedure confirmed by cath team. Current diagnosis: NSTEMI. PERRLA. 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 Lungs clear x 5 lobes. IV Site on Arrival: 20 gauge in the left anticubital. IV Fluids: 0.9% NaCl at KVO. 0 mL infused prior to director of cardiac cath lab. Pre Procedural Pulses: bilateral dorsalis pedis was 2+. Oxygen started at 2liters/min via nasal canula. right groin was prepped with chloroprep then draped in the usual sterile fashion. left groin was prepped with chloroprep then draped in the usual sterile fashion. Baseline sample Acquired. HR: 65 BPM. Physician notified. Physician arrived. Physician scrubbed in. Immediate Pre-Procedure Time Out. Correct Patient: Yes; Correct Procedure: Yes; Correct Site: Yes; Correct Patient Position: Yes; Correct Supplies: Yes; Dried Flammable Prep: Yes; Blood Products Available: N/A;. Lidocaine 1% infiltrated to the right groin. Arterial access obtained with micropuncture set. A 5 nigerien JL4 catheter in over wire. Multiple views taken of left coronary artery. Catheter removed over the standard wire. A 5 nigerien JR4 catheter in over wire. Multiple views taken of right coronary artery. SVG to Diaganol occluded. SVG's to Circumflex visualized and patent, thrombus present. AP Pads applied to patient chest. [place] to LAD visualized. Catheter out. 6 nigerien JR 4 guide catheter was inserted over the wire. Runthrough guidewire was advanced through the guide catheter to lesion in theSVG to distal circumflex. Penumbra catheter inserted into the SVG to circ. Mechanical aspiration started. Penumbra catheter removed OTW. Results checked. Results checked. [place] wire removed. Guide catheter out. A Right femoral angiogram was performed to determine safe placement of closure device. Family updated. A Angio-Seal VIP ([employer]) was successful obtaining hemostatsis at the Right Femoral artery insertion site Lot # [id number] Exp 01/13/2023. Angioseal placed without complications. No signs or symptoms of hematoma noted. Sterile dressing applied per usual sterile fashion. Post Procedure: Pulses reassessed and unchanged. PERRLA. 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 No VTE prophylaxis required. Medication's Wasted: Heparin = 1000 u. Total IV fluids: 116 mL. Medication's Wasted: Other = Cardene 24.5 mg. Post-op diagnosis: SVG to Circumflex thromotically occluded. Treated with thrombectomy. Complications: none. Estimated blood loss: 5mL-10mL. Responsiveness - Normal response to verbal stimuli; alert and oriented, PERRLA. Airway - Unaffected, no intervention required; spontaneous ventilation. Circulation: W/N/L, pulses unchanged. Nausea/Vomiting: No. Procedure completed. Patient transferred by bed to 1st floor. Vital chart was stopped. Access Site Site: Right Femoral artery Sheath Size: 6 Fr Hemostasis Method: Angio-Seal VIP ([employer] [facility]aden) Hemostasis Success: Successful Procedure Medications Start: 12:23 PM Stop: 12:23 PM Medication: Fentanyl Amount: 50 mcg Route: I.V. Start: 12:36 PM Stop: 12:36 PM Medication: Versed Amount: 1 mg Route: I.V. Start: 12:56 PM Stop: 12:56 PM Medication: Versed Amount: 1 mg Route: I.V. Start: 12:56 PM Stop: 12:56 PM Medication: Fentanyl Amount: 25 mcg Route: I.V. Start: 1:19 PM Stop: 1:19 PM Medication: Angiomax (5mg/mL) Amount: 12.6 ml Route: I.V. bolus Start: 1:19 PM Stop: 1:19 PM Medication: Angiomax (5mg/mL) Amount: 29.4 ml/hr Route: I.V. drip Start: 1:31 PM Stop: 1:31 PM Medication: Versed Amount: 1 mg Route: I.V. Start: 1:39 PM Stop: 1:39 PM Medication: Cardene Amount: 500 mcg Route: I.C. Start: 1:48 PM Stop: 1:48 PM Medication: Fentanyl Amount: 25 mcg Route: I.V. Start: 1:48 PM Stop: 1:48 PM Medication: Versed Amount: 1 mg Route: I.V. I, the attending physician, have reviewed and verified all procedure medications. Yes, all medications given per verbal order History/Risk Factors Hypertension: Yes Dyslipidemia: Yes Peripheral Arterial Disease (PAD): No Myocardial Infarction (ME): Yes Obesity: No Renal Disease: No Tobacco Use: Former Prior Interventions PCI: No CABG: Yes Valve Surgery: No Report Signatures Finalized by Saran Jones MD on 06/02/2022 12:39 AM
--- NOTE | 2022-06-01 12:06 | W.PM.OPSUD ---
Surgery/Procedure H&P Update DATE OF PROCEDURE: June 01, 2022 DATE H&P PERFORMED: 06/01/22 H&P UPDATE INFORMATION: I have examined patient prior to procedure and No changes to prior documentation PATIENT REASSESSED PRIOR TO SEDATION, WITH NO CHANGE NOTED: Yes PHYSICAL EXAM: alert, oriented x 3, clear to auscultation bilaterally and regular rate & rhythm AIRWAY EVAL/ANESTHESIA PLAN: ASA II and Risks, benefits & alternatives of sedation and/or procedure discussed ADDITIONAL INFORMATION: Mallampati 2
--- NOTE | 2022-06-01 13:10 | PC.NURSE ---
to cardiac quality assurance qa lab technician via bed at 1230
[2022-06-01] MEDS: sodium chloride 0.9% 1,000 ML 100 ML IV ×2 (14:20→23:25)
--- NOTE | 2022-06-01 14:29 | PC.NURSE ---
returned from cardiac laboratory veterinarian via bed at 1420.report received .pt is drowsy but easily awakened.sr on monitor.bp stable.sheath was dc'd in laboratory veterinarian and artery was closed with angioseal.right groin drsg is dry and intact.no hematoma noted.right leg is warm to touch and with brisk capillary refill.palpable dp pulse noted.pt and cg instructed in activity restrictions s/p femoral artery procedure...and instructed to notify staff for any bleeding,pain,cp,sob,numbness,or for any concerns at all.both verb understanding of instructions
[2022-06-01] MEDS: bivalirudin 250 MG in sodium chloride 0.9% 500 ML 295.45 MG IV (14:40)
[2022-06-01] MEDS: atorvastatin 40 mg Tablet PO (20:41)
[2022-06-01] MEDS: pantoprazole 40 mg SDV IVP (20:42)
[2022-06-02 03:29] LABS: Basophils % 0.3 %; Eosinophils % 0.1 %; Hematocrit 36.2 % (42.0-52.0); Lymphocytes # 1.6 10^3/uL (0.8-4.8); Lymphocytes % 17.5 %; Mean Corpuscular HGB Conc 33.1 g/dL (30.0-36.0); Mean Corpuscular Hemoglobin 29.5 pg (28.0-34.0); Mean Corpuscular Volume 88.9 fl (80-94); Mean Platelet Volume 9.2 fL (7.4-10.4); Monocytes # 0.9 10^3/uL (0.2-0.9); Monocytes % 9.8 %; Neutrophils # 6.38 10^3/uL (1.8-7.7); Nucleated Red Blood Cells % 0 %; Platelet Count 175 10^3/cmm (130-400); Red Blood Count 4.07 10^6/uL (4.1-5.3); Red Cell Distribution Width 12.5 % (12.1-15.1); White Blood Count 8.9 10^3/uL (4.0-10.0)
[2022-06-02 03:32] VITALS: BP 130/69; PULSE 84; RESP 19; TEMP 36.6; O2SAT 95
[2022-06-02 03:42] LABS: Alanine Aminotransferase 32 U/L (0-41); Albumin Level 3.3 g/dL (3.5-5.2); Alkaline Phosphatase 38 U/L (40-130); Anion Gap 12.7 (5-19); Aspartate Amino Transferase 174 U/L (0-40); Blood Urea Nitrogen 10 mg/dL (8-23); Calcium 7.9 mg/dL (8.5-10.5); Carbon Dioxide 23 mmol/L (22-29); Chloride 106 mmol/L (98-107); Globulin 2.6 g/dL (1.3-4.6); Glucose 92 mg/dL (65-115); Osmolality Calculated 285 mOsm/kg (285-295); Potassium 3.7 mmol/L (3.5-5.1); Sodium 138 mmol/L (136-145); Total Bilirubin 0.9 mg/dL (0.15-1.2); Total Protein 5.9 g/dL (6.6-8.7)
[2022-06-02 05:11] VITALS: PULSE 86
[2022-06-02] MEDS: metoprolol tartrate 25 mg Tablet PO (09:23)
[2022-06-02] MEDS: pantoprazole DR 40 mg Tablet PO (09:23)
[2022-06-02] MEDS: clopidogrel 75 mg Tablet PO (09:23)
[2022-06-02] MEDS: aspirin 325 mg Tablet PO (09:23)
[2022-06-02 09:41] VITALS: BP 139/83; PULSE 77; RESP 24
--- NOTE | 2022-06-02 09:42 | PM.PN ---
Subjective Subjective: Patient is doing well. Had mechanical thrombectomy of SVG to LCx yesterday Vitals/I&O/Wt Last Vital Signs Temp 98 F 06/02/22 03:32 Pulse 86 06/02/22 05:11 Resp 19 H 06/02/22 03:32 BP 130/69 06/02/22 03:32 Pulse Ox 95 06/02/22 03:32 O2 Del Method 06/01/22 19:00 06/01/22 06/02/22 06/02/22 22:59 06:59 14:59 Intake Total 740 / 1100 908.333 / 2007.333 1240 / 1240 Balance 740 / 750 908.333 / 1407.374 2161 / 1240 Weight last 48 hrs Weight 186 lb 1.6 oz Weight 186 lb 1.6 oz Weight 186 lb 3.2 oz Weight 181 lb Physical Exam Narrative: Alert awake oriented x3 No JVD cyanosis or icterus Heart regular S1-S2 Abdomen soft nontender nontender Lungs clear to auscultate 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 Continue aspirin and Plavix. Patient is stable to be discharged from cardiology follow up (2) Essential hypertension: Control will continue current regimen. (3) Hyperlipidemia associated with type 2 diabetes mellitus: Continue Repatha Attestations Medical Necessity Statement*: Care expected to cross 2 midnights. Coding Level of Care Code Acute Code for Chg Fwd Diagnoses Non-STEMI (non-ST elevated myocardial infarction) I21.4 Essential hypertension I10 Hyperlipidemia associated with type 2 diabetes mellitus E11.69; E78.5
--- NOTE | 2022-06-02 10:10 | PC.CHAP ---
Pastoral Care Encounter/Spiritual Assessment Type of Contact [] Declined nursing home manager visit [] Patient/Family/Request visit [] Outpatient visit [] Follow-up visit [] Physician referral [] Code/Alert [x] Routine visit [] Staff referral [] Actively dying [] Patient sleeping [x] Family support [] [] Out of room [] Palliative care [] [] Receiving care in room [] Pre-surgical visit [] Trauma [] Long length of stay [] ICU visit [] Other: Relational/Emotional Strength [x] Patient feels connected with others/family/visitors/staff [] Distress [] Loneliness/isolation [] Abandonment Spirituality of Patient [x] Person of Marielle [] Attends Restoration of their Marielle [x] Believes in Prayer [] Reads Bible or Quaker materials [] There are Spiritual issues to be addressed Software Verification Engineer Interventions [x] Prayer [] Active listening [] Non-anxious presence [x] Spiritual/emotional support [] Crisis/trauma care [] Spiritual counseling [] Bereavement support [] Provided bereavement packet [] Provided Bible/devotional materials [] Provided toy/stuffed animal, coloring book to patient or family member [] Provided Communion [] Anointing/[place] [] Salvation [x] Completed spiritual assessment [] Other: Impact on Illness or Injury [] Angry [] Fearful [] Anxious [] Often cries [] Exhaustion [] Unable to work [] Unable to attend muslim [] Unable to walk/stand [] Unable to read [] Unable to drive [] Unable to eat/drink [] Unable to sleep [] Unable to be with family [] Patient intubated [] Other: Summary Time spent with patient 5 min
--- NOTE | 2022-06-02 10:58 | P.DS_ITS ---
Discharge Providers Date of Admission: 05/31/22 20:57 Date of Discharge: June 02, 2022 Attending Provider at Admission: Prasanna Sorensen Attending Provider at Discharge: Sonu Pryor MD Primary Care Provider: Enrrique Bernardo Diagnoses at Discharge Discharge Diagnosis (1) Non-STEMI (non-ST elevated myocardial infarction): Status: Acute (2) Essential hypertension: Status: Acute (3) Hyperlipidemia associated with type 2 diabetes mellitus: Status: Acute Reason for Visit Reason for Visit: CP Hospital Course Hospital Course 72-year-old gentleman with history of CABG, started having chest pain radiating to the back and neck, quite severe, without exacerbating factors, did not respond to 1 nitroglycerin he took at home this afternoon, chest pain lasting until he was in the ER, improved with treatment here.? Currently feels like it might be coming back a little bit, but definitely not anything like it was before.? Still having back pain.? He says otherwise he has done quite well ever since his CABG.? Has been quite active, walking quite a bit, has not been bothered by chest pain up until now. Patient was admitted to [facility] for NSTEMI, underwent coronary angiogram #1 Left main has luminal irregularity without significant stenosis#2 LAD is occluded in the midsegment which is chronic#3 Nondominant circumflex has proximal 100% chronic total#4 RCA is a dominant vessel which is has luminal irregularities distal 30 to 40% stenosis PDA has mid 60 to 70% eccentric stenosisGraftsLIMA to LAD is patentSVG to diagonal is chronically occludedSVG to distal circumflex is a large-caliber aneurysmal diffusely diseased venous graft with proximal and distal high burden of thrombosis, it is the culprit vessel. * After engaging saphenous venous graft to circumflex run-through wire was crossed using CAT 6 penumbra catheter multiple passes of the catheter was performed from proximal to distal end of the saphenous venous graft, multiple clots were sucked out of the vessel, it restored the flow.? No significant residual clot was noted.? Good BERNADETTE-3 flow was confirmed and restored.? Since there was no obvious lesion therefore no further ballooning or intervention was performed.. -Patient was monitored for 24 hours after procedure -Managed with aspirin, Plavix, he has adverse reaction to statin, takes Repatha, beta-dianna -Overall remained chest pain-free, remain asymptomatic -Discharged on dual antiplatelet therapy, was advised to continue for at least 1 year, if he develops any bloody or black stools to go to emergency room -Please follow-up with the primary care for risk factor modification -Patient was advised if he has any recurrent chest pain to go to the emergency room -Follow-up with cardiology next week Physical Exam Const: COMMON NORMALS: no acute distress and patient oriented x3 Resp: COMMON NORMALS: normal respiratory effort, No retractions, No use of accessory muscles and clear to auscultation bilaterally AUSCULTATION: clear to auscultation bilaterally Cardio: COMMON NORMALS: regular rate, regular rhythm, S1 normal heart sound present and S2 normal heart sound present RATE: regular rate RHYTHM: regular rhythm HEART SOUNDS: S1 normal heart sound present and S2 normal heart sound present GI: COMMON NORMALS: Normal to inspection, nondistended, normoactive bowel sounds present and non-tender Extremity: COMMON NORMALS: no pedal edema Neuro: COMMON NORMALS: patient oriented x3 Psych: COMMON NORMALS: mental status grossly normal Discharge Data Studies Completed and Pending Completed Studies During Hospitalization Category Date Time Status CTA chest [CT angio chest [id number]] Stat Cat Scan 05/31/22 20:50 Completed B[employer]ACHINE request for service Routine Exams 06/01/22 11:27 Completed XR chest 1V portable [id number] Stat Exams 05/31/22 15:43 Completed CV. echo limited [id number] Routine Ultrasound 06/01/22 06:00 Completed Pending at discharge Category Date Time Status Complete Blood Count w/Auto AM LABS Lab 06/03/22 04:00 Ordered Comprehensive Metabolic Panel AM LABS Lab 06/03/22 04:00 Ordered Radiology Impressions Chest X-Ray 05/31/22 15:43 IMPRESSION: No acute findings. Metallic sternotomy wires are present Chest CTA 05/31/22 20:50 IMPRESSION: No acute arterial findings. 1.7 cm splenic aneurysm Laboratory Results WBC 8.9 10^3/uL (4.0-10.0) 06/02/22 02:57 RBC 4.07 10^6/uL (4.1-5.3) L 06/02/22 02:57 Hgb 12.0 g/dL (11.7-16.6) 06/02/22 02:57 Hct 36.2 % (42.0-52.0) L 06/02/22 02:57 MCV 88.9 fl (80-94) 06/02/22 02:57 MCH 29.5 pg (28.0-34.0) 06/02/22 02:57 MCHC 33.1 g/dL (30.0-36.0) 06/02/22 02:57 RDW 12.5 % (12.1-15.1) 06/02/22 02:57 Plt Count 175 10^3/cmm (130-400) 06/02/22 02:57 MPV 9.2 fL (7.4-10.4) 06/02/22 02:57 Neut % (Auto) 72.0 % 06/02/22 02:57 Lymph % (Auto) 17.5 % 06/02/22 02:57 [place] % (Auto) 9.8 % 06/02/22 02:57 Eos % (Auto) 0.1 % 06/02/22 02:57 Baso % (Auto) 0.3 % 06/02/22 02:57 Neut # (Auto) 6.38 10^3/uL (1.8-7.7) 06/02/22 02:57 Lymph # (Auto) 1.6 10^3/uL (0.8-4.8) 06/02/22 02:57 [place] # (Auto) 0.9 10^3/uL (0.2-0.9) 06/02/22 02:57 Eos # (Auto) 0.0 10^3/uL (0.0-0.8) 06/02/22 02:57 Baso # (Auto) 0.0 10^3/uL (0.0-0.1) 06/02/22 02:57 Nucleated RBC % (auto) 0 % 06/02/22 02:57 Nucleated RBCs # 0.0 /100WBC 06/02/22 02:57 Sodium 138 mmol/L (136-145) 06/02/22 02:57 Potassium 3.7 mmol/L (3.5-5.1) 06/02/22 02:57 Chloride 106 mmol/L (98-107) 06/02/22 02:57 Carbon Dioxide 23 mmol/L (22-29) 06/02/22 02:57 Anion Gap 12.7 (5-19) 06/02/22 02:57 BUN 10 mg/dL (8-23) 06/02/22 02:57 Creatinine 1.1 mg/dL (0.7-1.2) 06/02/22 02:57 GFR Calculation Not Reportable 06/02/22 02:57 Glucose 92 mg/dL (65-115) 06/02/22 02:57 Calculated Osmolality 285 mOsm/kg (285-295) 06/02/22 02:57 Calcium 7.9 mg/dL (8.5-10.5) L 06/02/22 02:57 Magnesium 1.7 mg/dL (1.7-2.3) 06/01/22 04:20 Total Bilirubin 0.9 mg/dL (0.15-1.2) 06/02/22 02:57 AST 174 U/L (0-40) H 06/02/22 02:57 ALT 32 U/L (0-41) 06/02/22 02:57 Alkaline Phosphatase 38 U/L (40-130) L 06/02/22 02:57 Troponin T Baseline 12 ng/L (0-15) 05/31/22 15:46 Troponin T 120 Minute 193.8 ng/L (0-15) H 05/31/22 19:01 Delta Troponin T 181.8 ABS# (0-10) H* 05/31/22 19:01 Troponin T Hi Sens 6Hr 551.1 ng/L (0-15) H 05/31/22 21:53 Troponin T Hi Sens 6Hr Delta 539.1 ng/L (0-12) H* 05/31/22 21:53 NT-Pro-B Natriuret Pep 103 pg/mL (0-125) 05/31/22 15:46 Total Protein 5.9 g/dL (6.6-8.7) L 06/02/22 02:57 Albumin 3.3 g/dL (3.5-5.2) L 06/02/22 02:57 Globulin 2.6 g/dL (1.3-4.6) 06/02/22 02:57 Lipase 34 U/L (13-60) 05/31/22 15:46 Vitals Last Vital Signs Temp 98 F 06/02/22 03:32 Pulse 77 0320/23 09:41 Resp 24 H 06/02/22 09:41 BP 139/83 06/02/22 09:41 Pulse Ox 95 06/02/22 03:32 O2 Del Method 06/01/22 19:00 Discharge Plan Discharge Patient Disposition: Home Condition: Stable Prescriptions: New metoprolol tartrate 25 mg Tablet 25 mg PO BID@0900,2100 30 Days Qty: 30 0RF clopidogrel 75 mg Tablet 75 mg PO DAILY 30 Days Qty: 30 0RF nitroglycerin 0.4 mg Tablet, Sublingual 0.4 mg sublingual Q5M PRN (Reason: Chest Pain) 30 Days Qty: 30 0RF Continued Prilosec OTC 20 mg Tablet,Delayed Release (Dr/Ec) 20 mg PO DAILY Repatha SureClick 140 mg/mL pen injector 140 mg SUBCUT DIRECTED Rx Instructions: every 2 weeks, last given 05/19/2022 aspirin 81 mg Tablet,Chewable 81 mg PO DAILY 30 Days Qty: 30 0RF Discontinued carvedilol 3.125 mg tablet 3.125 mg PO BID Discharge Orders: Discharge Order (Routine); Ordered 06/02/22 Ordered By: Sonu Pryor Referrals: Gisell Kennedy FNP [Nurse Practitioner] - 06/16/22 10:00 am (Please follow-up with Gisell Kennedy on June 16 at 10:00A.M. If you have any questions or need to reschedule. Please call ) Discharge Diet: Cardiac Discharge Activity: Resume usual activity Patient Instructions: Opioid Safety Activity Restrictions/Additional Instructions: - Please take aspirin, and Plavix as prescribed -Please follow-up for cardiology, for Repatha injection -Take metoprolol as prescribed, monitor heart rates closely -Please follow-up with cardiology -If you have any recurrent chest pain please go to emergency room Discharge Attestations Time Spent in Discharge Care*: greater than 30 min Quality Metrics Clinical Quality Measures [ No reported AMI, CVA or VTE this stay] Coding Level of Care Code 34250 Total time (in minutes) for Discharge: 40 Diagnoses Non-STEMI (non-ST elevated myocardial infarction) I21.4 Essential hypertension I10 Hyperlipidemia associated with type 2 diabetes mellitus E11.69; E78.5
[2022-06-02 11:11] VITALS: BP 139/83; PULSE 77; RESP 24
--- NOTE | 2022-06-02 11:41 | PC.NURSE ---
discharge instructions given and explained.pt and spouse verb understanding of instructions.discharged via w/c to exit at this time.
== END 2022-06-02 11:42 | disposition home or self-care (01) | DRG 251 ==
LOC: ER 20:47 → CSU 23:45
PROVIDERS: Emergency Medicine; Internal Medicine Cardiovascular Disease; Admitting Provider Internal Medicine; Emergency Provider Emergency Medicine; PCP Family Medicine; Visit Provider Family Medicine
PROC: 02C03Z7 Extirpation of Matter from Coronary Artery, One Artery, Orbital Atherectomy Technique, Percutaneous Approach (ICD-10-PCS; principal; 2022-06-01 12:00)
PROC: 02C03Z7 Extirpation of Matter from Coronary Artery, One Artery, Orbital Atherectomy Technique, Percutaneous Approach (ICD-10-PCS; 2022-06-01 12:00)
DX: I21.4 Non-ST elevation (NSTEMI) myocardial infarction (principal); I25.810 Atherosclerosis of coronary artery bypass graft(s) without angina pectoris; I10 Essential (primary) hypertension; E78.49 Other hyperlipidemia; E11.9 Type 2 diabetes mellitus without complications; Z79.82 Long term (current) use of aspirin
CPT/HCPCS: 36415; 71045; 71275; 80053; 83690; 83735; 83880; 84484; 85025; 92973; 93005; 93308; 93455; 96372; 96374; 96375; 96376; 99152; 99153; 99285; C1760; C1769; C1887; C1894; C9113; G0269; J0583; J1644; J1650; J1885; J2250; J2270; J3010; J7030; J7040; Q9967

== ENCOUNTER → 2022-06-16 09:51 | Outpatient (BNVA) | payer MEDICARE, SELFPAY | PROVIDERS: PCP Family Medicine; Visit Provider Nurse Practitioner Family | DX: I25.10 Atherosclerotic heart disease of native coronary artery without angina pectoris (principal); Z95.1 Presence of aortocoronary bypass graft; Z79.82 Long term (current) use of aspirin | CPT/HCPCS: 99214 ==

== ENCOUNTER → 2022-08-25 12:50 | Outpatient (BNVA) | payer MEDICARE, SELFPAY | PROVIDERS: PCP Family Medicine; Visit Provider Internal Medicine | DX: I25.10 Atherosclerotic heart disease of native coronary artery without angina pectoris (principal); Z95.1 Presence of aortocoronary bypass graft; Z79.82 Long term (current) use of aspirin | CPT/HCPCS: 99214 ==

== ENCOUNTER → 2023-02-12 09:50 | Outpatient (BNVA) | payer MEDICARE, SELFPAY | PROVIDERS: PCP Family Medicine; Visit Provider Nurse Practitioner Family | DX: Z01.810 Encounter for preprocedural cardiovascular examination (principal); I25.10 Atherosclerotic heart disease of native coronary artery without angina pectoris | CPT/HCPCS: 99213 ==

== ENCOUNTER → 2023-05-07 13:34 | Outpatient (BNVA) | payer MEDICARE, SELFPAY | PROVIDERS: PCP Family Medicine; Visit Provider Internal Medicine | DX: I25.10 Atherosclerotic heart disease of native coronary artery without angina pectoris (principal) | CPT/HCPCS: 99214 ==

== ENCOUNTER 2023-12-18 20:56 | Emergency (ER) | payer MEDICARE, SELFPAY ==
--- NOTE | 2023-12-18 20:57 | ECG_ITS ---
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 Measurements Intervals [place]ibel Rate: 66 P: 60 NE: 170 QRS: 26 QRSD: 85 T: 30 QT: 377 QTc: 395 Interpretive Statements SINUS RHYTHM POSSIBLE RIGHT VENTRICULAR CONDUCTION DELAY [RSR (QR) IN V1/V2] Compared to ECG 05/31/2022 22:00:26 T-wave abnormality no longer present Electronically Signed On 12-19-2023 21:01:13 CDT by Chema Fairchild M.D. [id number]
--- NOTE | 2023-12-18 20:58 | XRR_ITS ---
PROCEDURE INFORMATION: Exam: XR Chest Exam date and time: 12/18/2023 9:58 PM Age: 73 years old Clinical indication: Sternal or substernal pain; Prior surgery; Surgery date: 6+ months; Surgery type: Cabg; Patient HX: C/O substernal cp TECHNIQUE: Imaging protocol: Radiologic exam of the chest. Views: 1 view. COMPARISON: CT angio chest [id number] 05/31/2022 8:55 PM FINDINGS: Lungs: Unremarkable. No consolidation. Pleural spaces: Unremarkable. No pleural effusion. No pneumothorax. Heart/Mediastinum: Postop changes of prior CABG. Bones/joints: Unremarkable. XR/XR chest 1V portable [id number] IMPRESSION: No acute findings.
[2023-12-18 21:04] VITALS: BP 168/78; PULSE 63; RESP 16; TEMP 36.7; O2SAT 96
[2023-12-18 22:09] LABS: Basophils % 0.5 %; Eosinophils # 0.1 10^3/uL (0.0-0.8); Eosinophils % 0.8 %; Hematocrit 42.1 % (37-53); Lymphocytes % 12.6 %; Mean Corpuscular HGB Conc 33.5 g/dL (30-55); Mean Corpuscular Hemoglobin 30.3 pg (27-33); Mean Corpuscular Volume 90.5 fl (82-101); Mean Platelet Volume 8.5 fL (7.4-10.4); Monocytes # 0.5 10^3/uL (0.2-0.9); Monocytes % 6.7 %; Neutrophils # 6.21 10^3/uL (1.8-7.7); Nucleated Red Blood Cells % 0 %; Platelet Count 217 10^3/cmm (157-399); Red Blood Count 4.65 10^6/uL (3.85-5.65); Red Cell Distribution Width 12.3 % (12.1-15.1); White Blood Count 7.86 10^3/uL (3.29-11.43)
[2023-12-18 22:24] LABS: D Dimer 0.57 ug/mLFEU (0-0.59)
[2023-12-18 22:28] LABS: Troponin(5th) Baseline < 6 ng/L (0-15)
[2023-12-18 22:32] VITALS: RESP 16
[2023-12-18] MEDS: aspirin 81 mg Chew Tablet 324 MG PO (22:32)
[2023-12-18] MEDS: morphine 4 mg/mL SDV 1 mL IVP (22:32)
[2023-12-18 22:33] VITALS: BP 158/87; PULSE 61
[2023-12-18] MEDS: nitroglycerin 1 gm/inch oint Pkt 1 INCH TOPICAL (22:33)
[2023-12-18] MEDS: lidocaine 2% viscous 15 ML, aluminum-mag hydrox-simethicon 30 ML, sucralfate oral liq 1 GM PO (22:35)
[2023-12-18] MEDS: ondansetron 2 mg/ML SDV 2 mL 4 MG IVP (22:35)
[2023-12-18 22:38] LABS: Alanine Aminotransferase 12 U/L (0-41); Albumin Level 4.1 g/dL (3.5-5.2); Alkaline Phosphatase 71 U/L (40-130); Anion Gap 12.4 (5-19); Aspartate Amino Transferase 18 U/L (0-40); Blood Urea Nitrogen 19 mg/dL (8-23); Calcium 8.9 mg/dL (8.5-10.5); Carbon Dioxide 29 mmol/L (22-29); Chloride 102 mmol/L (98-107); Creatine Phosphokinase 65 U/L (39-308); Globulin 2.6 g/dL (1.3-4.6); Glucose 111 mg/dL (65-115); Lipase 23 U/L (13-60); NT Pro B Type Natriuretic Pept 391 pg/mL (0-125); Osmolality Calculated 291 mOsm/kg (285-295); Potassium 4.4 mmol/L (3.5-5.1); Sodium 139 mmol/L (136-145); Total Bilirubin 0.4 mg/dL (0.15-1.2); Total Protein 6.7 g/dL (6.6-8.7)
[2023-12-18 22:50] VITALS: BP 160/82; PULSE 65; O2SAT 93
--- NOTE | 2023-12-18 22:55 | ED_ITS ---
HPI - Chest Pain 2 General: Chief Complaint: Chest Pain Stated Complaint: CP back pain Time Seen by Provider: 12/18/23 21:51 History of Present Illness: 73-year-old male with a history of coron anay disease. He has had a bypass in the past, and evidently had angioplasty last year. He presents with chest discomfort, in the middle of the chest radiating into his upper back. This started while he was walking out to his barn. Pain was quite intense, he had some shortness of breath with vomiting during that episode. Nausea and shortness of breath have improved. Pain is improved to a 5 out of 10 he says. He denies fever cough Related Data Home Medications Medication Instructions Recorded Confirmed evolocumab 140 mg/mL subcutaneous 140 mg SUBCUT DIRECTED 05/31/22 05/07/23 pen injector (Javy Belcher) omeprazole magnesium 20 mg 20 mg PO DAILY 05/31/22 05/07/23 tablet,delayed release (Prilosec OTC) Previous Rx's Medication Instructions Recorded aspirin 81 mg chewable tablet 81 mg PO DAILY 30 days #30 tabs 06/02/22 clopidogrel 75 mg tablet 75 mg PO DAILY #90 tabs 06/26/23 metoprolol succinate 50 mg See Rx Instructions .Route 08/17/23 tablet,extended release 24 hr .COMPLEX #90 tabs Allergies Allergy/AdvReac Type Severity Reaction Status Date / Time smallpox vaccine,live Allergy ADR-Nausea Verified 05/07/23 14:23 Oekoolb-NPV-DqT Reductase Allergy Unknown Verified 12/18/23 21:09 Inhibitor PFSH ED 2 PFSH: Medical History CAD (coronary artery disease) Surgical History Hx of CABG Physical Exam 2 Const: COMMON NORMALS: no acute distress GENERAL APPEARANCE: cooperative; not ill appearing and not frail appearing HENMT: COMMON NORMALS: normocephalic, atraumatic and Normal external nose present HEAD & SCALP: normocephalic and atraumatic FACE & SINUS: normal facial exam and face symmetric NOSE: Normal external nose present Eye: COMMON NORMALS: Equal, round and reactive pupils present and EOMs intact bilaterally PUPIL: Yes Equal, round and reactive pupils present Neck/C-Spine: GENERAL: Yes trachea midline Chest: CHEST: Yes Symmetrical chest wall rise Resp: COMMON NORMALS: normal respiratory effort, No retractions, No use of accessory muscles and clear to auscultation bilaterally AUSCULTATION: clear to auscultation bilaterally Cardio: COMMON NORMALS: regular rate and regular rhythm RATE: regular rate RHYTHM: regular rhythm GI: COMMON NORMALS: Normal to inspection, nondistended, normoactive bowel sounds present Extremity: COMMON NORMALS: no pedal edema Neuro: SHANTA COMA SCALE: document GCS findings Shanta coma scale eye opening: Spontaneous [place] coma scale verbal response: Orientated Shanta coma scale motor response: Obey commands Shanta coma scale total score: 15 S ENSORY EXAM: Yes extremities (intact) Psych: COMMON NORMALS: speech normal SPEECH: Yes normal speech Skin: COMMON NORMALS: no rashes or lesions noted GENERAL SKIN EXAM: no rashes or lesions noted Course 2 Vital Signs: Vital signs: Vital Signs Temperature 98.1 F 12/18/23 21:04 Pulse Rate 60 12/19/23 01:13 Respiratory Rate 16 12/18/23 22:32 Blood Pressure 136/79 12/19/23 01:13 Pulse Oximetry 96 12/19/23 01:13 Oxygen Delivery Me thod Room Air 12/18/23 22:50 MDM - Chest Pain Medical Decision Making Patient is mildly hypertensive here. Other vitals are stable. CBC BMP are normal. Chest x-ray is normal. D-dimer is normal. Troponin is nondetectable. BNP is 391. Second troponin is pending. His pain is now 2 out of 10 after morphine, Zofran, GI cocktail, and Nitropaste. Patient's pain improved to 0. Second troponin is 6. He has walked in the ER without return of his pain. He would like to go home if possible. Risks were discussed, given his heart score of 5 and potential need for observation. Since his pain is gone, the patient would really like to go home. He understands the risks. He will be discharged to return for any return of his pain. Outpatient follow-up. Lab Data 12/18/23 22:02 12/18/23 22:02 Radiology Impressions Chest X-Ray 12/18/23 20:58 IMPRESSION: No acute findings. Laboratory Results WBC 7.86 10^3/uL (3.29-11.43) 12/18/23 22:02 RBC 4.65 10^6/uL (3.85-5.65) 12/18/23 22:02 Hgb 14.10 g/dL (11.27-16.99) 12/18/23 22:02 Hct 42.1 % (37-53) 12/18/23 22:02 MCV 90.5 fl (82-101) 12/18/23 22:02 MCH 30.3 pg (27-33) 12/18/23 22:02 MCHC 33.5 g/dL (30-55) 12/18/23 22:02 RDW 12.3 % (12.1-15.1) 12/18/23 22: Plt Count 217 10^3/cmm (157-399) 12/18/23 22:02 MPV 8.5 fL (7.4-10.4) 12/18/23 22:02 Neut % (Auto) 79.0 % 12/18/23 22: Lymph % (Auto) 12.6 % 12/18/23 22:02 [place] % (Auto) 6.7 % 12/18/23 22:02 Eos % (Auto) 0.8 % 12/18/23 22: Baso % (Auto) 0.5 % 12/18/23 22: Neut # (Auto) 6.21 10^3/uL (1.8-7.7) 12/18/23 22:02 Lymph # (Auto) 1.0 10^3/uL (0.8-4.8) 12/18/23 22:02 [place] # (Auto) 0.5 10^3/uL (0.2-0.9) 12/18/23 22:02 Eos # (Auto) 0.1 10^3/uL (0.0-0.8) 12/18/23 22:02 Baso # (Auto) 0.0 10^3/uL (0.0-0.1) 12/18/23 22:02 Nucleated RBC % (auto) 0 % 12/18/23 22: Nucleated RBCs # 0.0 /100WBC 12/18/23 22:02 D-Dimer 0.57 ug/mLFEU (0-0.59) 12/18/23 22:02 Sodium 139 mmol/L (136-145) 12/18/23 22:02 Potassium 4.4 mmol/L (3.5-5.1) 12/18/23 22:02 Chloride 102 mmol/L (98-107) 12/18/23 22:02 Carbon Dioxide 29 mmol/L (22-29) 12/18/23 22:02 Anion Gap 12.4 (5-19) 12/18/23 22:02 BUN 19 mg/dL (8-23) 12/18/23 22:02 Creatinine 1.1 mg/dL (0.7-1.2) 12/18/23 22:02 GFR Calculation Not Reportable 12/18/23 22:02 Glucose 111 mg/dL (65-115) 12/18/23 22:02 Calculated Osmolality 291 mOsm/kg (285-295) 12/18/23 22:02 Calcium 8.9 mg/dL (8.5-10.5) 12/18/23 22:02 Total Bilirubin 0.4 mg/dL (0.15-1.2) 12/18/23 22:02 AST 18 U/L (0-40) 12/18/23 22:02 ALT 12 U/L (0-41) 12/18/23 22:02 Alkaline Phosphatase 71 U/L (40-130) 12/18/23 22:02 Creatine Kinase 65 U/L (39-308) 12/18/23 22:02 Troponin T Baseline < 6 ng/L (0-15) 12/18/23 22:02 Troponin T 120 Minute 6.00 ng/L (0-15) 12/19/23 00:00 Delta Troponin T 0.48965 ABS# (0-10) 12/19/23 00:00 NT-Pro-B Natriuret Pep 391 pg/mL (0-125) H 12/18/23 22:02 Total Protein 6.7 g/dL (6.6-8.7) 12/18/23 22:02 Albumin 4.1 g/dL (3.5-5.2) 12/18/23 22:02 Globulin 2.6 g/dL (1.3-4.6) 12/18/23 22:02 Lipase 23 U/L (13-60) 12/18/23 22:02 All radiology interpretation(s) finalized by discharge Clincial Decision Support The following clinical decision support tools were used to aid in care of the patient HEART Score -> History: Moderately Suspicious, EKG: Normal, Age: 65 or more yrs, Risk Factors: >/=3 Risk Factors, Troponin: Baseline Trop <16 ng/L. Resulting HEART Score: 5. Discharge Plan Discharge Patient Disposition: Home Clinical Impression: Chest pain Condition: Stable Prescriptions: No Action clopidogrel 75 mg tablet 75 mg PO DAILY Qty: 90 3RF metoprolol succinate 50 mg tablet extended release 24 hr See Rx Instructions .ROUTE .COMPLEX Qty: 90 3RF Dose Instruction: Take 1 tablet by mouth once daily Rx Instructions: Take 1 tablet by mouth once daily Prilosec OTC 20 mg Tablet,Delayed Release (Dr/Ec) 20 mg PO DAILY Repatha SureClick 140 mg/mL pen injector 140 mg SUBCUT DIRECTED Rx Instructions: every 2 weeks, last given 05/19/2022 aspirin 81 mg Tablet,Chewable 81 mg PO DAILY 30 Days Qty: 30 0RF Discharge Orders: Discharge ED (Routine); Ordered 12/19/23 Ordered By: Angus Donaldson Referrals: Enrrique Bernardo [Primary Care Provider] - 1-3 days Patient Instructions: Chest Pain (ED), Opioid Safety, Pain Management Activity Restrictions/Additional Instructions: Return for return of chest pain, development of shortness of breath, fever, cough, other concerning symptoms. Call your doctor on Thursday to make a follow- up appointment. They may want to see you or perform more outpatient testing. Coding Level of Care Code ED Pulling Unit Floorhand for Surya Lowe
--- NOTE | 2023-12-18 22:58 | ECG_ITS ---
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 Measurements Intervals [place] Rate: 65 P: 46 [place]: 181 QRS: 11 QRSD: 88 T: 50 QT: 384 QTc: 402 Interpretive Statements SINUS RHYTHM Compared to ECG 12/18/2023 20:57:46 No significant changes Electronically Signed On 12-19-2023 21:18:01 CDT by Chema Fairchild M.D. [email or web address] [email or web address] university [email or web address]/[id number]
[2023-12-19 00:15] VITALS: BP 130/76; PULSE 68; O2SAT 96
[2023-12-19 00:26] LABS: Troponin 5 2HR Delta 0.00001 ABS# (0-10)
[2023-12-19 01:13] VITALS: BP 136/79; PULSE 60; O2SAT 96
== END 2023-12-19 01:13 | disposition home or self-care (01) ==
PROVIDERS: Emergency Provider Emergency Medicine; PCP Family Medicine
DX: R07.9 Chest pain, unspecified (principal); Z79.02 Long term (current) use of antithrombotics/antiplatelets; Z79.82 Long term (current) use of aspirin; I25.10 Atherosclerotic heart disease of native coronary artery without angina pectoris; Z95.1 Presence of aortocoronary bypass graft
CPT/HCPCS: 36415; 71045; 80048; 80053; 82550; 83690; 83880; 84484; 85025; 85378; 93005; 96374; 96375; 99285; J2270; J2405

== ENCOUNTER → 2024-02-04 13:52 | Outpatient (BNVA) | payer MEDICARE, SELFPAY | PROVIDERS: PCP Family Medicine; Visit Provider Internal Medicine | DX: I25.10 Atherosclerotic heart disease of native coronary artery without angina pectoris (principal); Z95.1 Presence of aortocoronary bypass graft | CPT/HCPCS: 99213 ==

== ENCOUNTER → 2024-11-09 13:58 | Outpatient (BNVA) | payer MEDICARE, SELFPAY | PROVIDERS: PCP Family Medicine; Visit Provider Internal Medicine | DX: I25.10 Atherosclerotic heart disease of native coronary artery without angina pectoris (principal) | CPT/HCPCS: 99214 ==